=== PATIENT | male | born 1935 | race Caucasian/White ===

== ENCOUNTER 2022-02-09 17:08 | Emergency (ER) | payer MEDICARE, SELFPAY ==
[2022-02-09 17:58] VITALS: BP 179/98; PULSE 98; TEMP 36.8; O2SAT 96; BMI 26.6
--- NOTE | 2022-02-09 18:00 | XRR_ITS ---
PROCEDURE INFORMATION: Exam: XR Chest Exam date and time: 02/09/2022 6:38 PM Age: 86 years old Clinical indication: Cough and dyspnea; Additional info: Dyspnea/cough TECHNIQUE: Imaging protocol: Radiologic exam of the chest. Views: 1 view. COMPARISON: No relevant prior studies available. FINDINGS: Lungs: Right hilar to lower lobe atelectasis versus infiltrate. Emphysematous changes. Pleural spaces: Unremarkable. No pleural effusion. No pneumothorax. Heart/Mediastinum: Unremarkable. No cardiomegaly. Bones/joints: Unremarkable. XR/XR chest 1V portable [id number] IMPRESSION: 1. Right hilar to lower lobe atelectasis versus infiltrate. 2. Emphysematous changes.
--- NOTE | 2022-02-09 18:29 | W.ED.SOB ---
HPI - SOB/Dyspnea General: Chief Complaint: Shortness of Breath/Dyspnea Stated Complaint: Chest pains Covid + Time Seen by Provider: 02/09/22 17:58 Source: patient Mode of arrival: ambulatory Limitations: no limitations History of Present Illness: HPI Narrative: 86-year-old male states of last 2 days has been having cough congestion along with some slight dyspnea. He states that he took a home COVID test that was positive. He states he is continuing to cough and wheezing and just feeling fatigued. He is in no distress here his pulse ox is normal he denies any chest pain he denies any worsening improving factors denies any vomiting or diarrhea. Associated symptoms: Deny abdominal pain, chest pain, fever(s), nausea or vomiting Review of Systems Const: Denies: fever(s), chills, body aches or change in appetite Eyes: Denies: blurry vision or eye discomfort ENMT: Denies: throat pain or dental pain Card: Denies: chest pain Resp: Reports: dyspnea and non-productive cough GI: Denies: abdominal pain, nausea, vomiting or diarrhea : Denies: dysuria Musc: Denies: neck pain or back pain Skin/Breast: Denies: rash Neuro: Denies: headache(s) Psych: Denies: depression Stephen/Lymph: Denies: easy bruising All/Imm: Denies: urticaria PFSH ED PFSH: Medical History No pertinent past medical history Surgical History No pertinent past surgical history Social History Smoking and tobacco status: former smoker History of recent travel: No Physical Exam Const: COMMON NORMALS: no acute distress, patient oriented x3 and healthy appearing HENMT: COMMON NORMALS: normocephalic and atraumatic HEAD & SCALP: normocephalic and atraumatic Eye: COMMON NORMALS: Equal, round and reactive pupils present and EOMs intact bilaterally PUPIL: Yes Equal, round and reactive pupils present Neck/C-Spine: COMMON NORMALS: full ROM and supple Chest: COMMONS NORMALS: normal inspection of the chest and normal palpation of entire chest wall Resp: COMMON NORMALS: normal respiratory effort, No retractions, No use of accessory muscles and clear to auscultation bilaterally AUSCULTATION: clear to auscultation bilaterally Cardio: COMMON NORMALS: regular rate, regular rhythm and No murmurs present (Cardio) RATE: regular rate RHYTHM: regular rhythm GI: COMMON NORMALS: Normal to inspection, nondistended, normoactive bowel sounds present, Soft to palpation, non-tender and no masses PALPATION: Yes Soft to palpation Extremity: COMMON NORMALS: normal to inspection and full ROM Neuro: COMMON NORMALS: patient oriented x3, moves all extremities and no focal motor deficits Psych: COMMON NORMALS: mental status grossly normal, Normal thought process present and cooperative THOUGHT PROCESS: Normal thought process present Skin: COMMON NORMALS: no rashes or lesions noted and no wounds GENERAL SKIN EXAM: no rashes or lesions noted Course Vital Signs: Vital signs: Vital Signs Temperature 98.2 F 02/09/22 17:58 Pulse Rate 85 02/09/22 19:26 Respiratory Rate 16 02/09/22 19:25 Blood Pressure 108/82 02/09/22 19:26 Pulse Oximetry 95 02/09/22 19:26 MDM - SOB/Dyspnea Medical Decision Making Patient presents here with cough he did have a positive COVID at home and is negative here he could possibly have COVID with a false negative here. He is well-appearing here in no distress his x-ray shows a possible pneumonia we will start him on doxycycline he is to follow-up with his PCP in 3 to 5 days and return if worsening he understands and agrees to plan. Lab Data : 02/09/22 19:16 02/09/22 18:28 Labs/Radiology: Radiology Impressions Chest X-Ray 02/09/22 18:00 IMPRESSION: 1. Right hilar to lower lobe atelectasis versus infiltrate. 2. Emphysematous changes. Laboratory Results WBC 4.9 10^3/uL (4.0-10.0) 02/09/22 19:16 Corrected WBC Cancelled 02/09/22 18:28 RBC 4.25 10^6/uL (4.1-5.3) 02/09/22 19:16 Hgb 14.6 g/dL (11.7-16.6) 02/09/22 19:16 Hct 41.0 % (42.0-52.0) L 02/09/22 19:16 MCV 96.5 fl (80-94) H 02/09/22 19:16 MCH 34.4 pg (28.0-34.0) H 02/09/22 19:16 MCHC 35.6 g/dL (30.0-36.0) 02/09/22 19:16 RDW 12.7 % (12.1-15.1) 02/09/22 19:16 Plt Count 203 10^3/cmm (130-400) 02/09/22 19:16 MPV 10.4 fL (7.4-10.4) 02/09/22 19:16 Gran % Cancelled 02/09/22 18:28 Neut % (Auto) 65.2 % 02/09/22 19:16 Lymph % (Auto) 22.0 % 02/09/22 19:16 [place] % (Auto) 9.9 % 02/09/22 19:16 Eos % (Auto) 2.1 % 02/09/22 19:16 Baso % (Auto) 0.4 % 02/09/22 19:16 Neut # (Auto) 3.18 10^3/uL (1.8-7.7) 02/09/22 19:16 Lymph # (Auto) 1.1 10^3/uL (0.8-4.8) 02/09/22 19:16 [place] # (Auto) 0.5 10^3/uL (0.2-0.9) 02/09/22 19:16 Eos # (Auto) 0.1 10^3/uL (0.0-0.8) 02/09/22 19:16 Baso # (Auto) 0.0 10^3/uL (0.0-0.1) 02/09/22 19:16 Absolute Gran (auto) Cancelled 02/09/22 18:28 Nucleated RBC % (auto) 0 % 02/09/22 19:16 Nucleated RBCs # 0.0 /100WBC 02/09/22 19:16 D-Dimer 0.69 ug/mIFEU (0-0.59) H 02/09/22 18:28 Specimen Type Arterial 02/09/22 18:24 Sample Site Radial, left 02/09/22 18:24 ABG pH 7.42 (7.35-7.45) 02/09/22 18:24 ABG pCO2 38.0 mmHg (35-45) 02/09/22 18:24 ABG pO2 82.6 mmHg (80.0-100.0) 02/09/22 18:24 ABG HCO3 24.8 mmol/L (22-26) 02/09/22 18:24 ABG O2 Saturation 95.3 02/09/22 18:24 ABG Base Excess 0.5 mmol/L (-2.0-2.0) 02/09/22 18:24 [place] Test Pos 02/09/22 18:24 A-a O2 Gradient 2.5 mmHg (5-10) L 02/09/22 18:24 Hematocrit 44.4 % (42-52) 02/09/22 18: Hgb O2 Saturation 94.9 % (95-100) L 02/09/22 18:24 Carboxyhemoglobin 0.0 %THgb (0.4-20.1) L 02/09/22 18: Methemoglobin 0.5 % (0.4-1.5) 02/09/22 18:24 Total Hemoglobin 14.5 g/dL (14-18) 02/09/22 18:24 Sodium 140.0 mmol/L (131-143) 02/09/22 18:24 Potassium 4.0 mmol/L (3.5-5.0) 02/09/22 18:24 Glucose 110.0 mg/dL (70-115) 02/09/22 18: Ionized Calcium 1.2 mmol/L (1.1-1.4) 02/09/22 18:24 O2 Delivery Device Room air 02/09/22 18:24 FiO2 21.0 % 02/09/22 18:24 [employer] Operator ID Cak 02/09/22 18:24 Sodium 137 mmol/L (136-145) 02/09/22 18:28 Potassium 4.0 mmol/L (3.5-5.1) 02/09/22 18: Chloride 100 mmol/L (98-107) 02/09/22 18: Carbon Dioxide 27 mmol/L (22-29) 02/09/22 18: Anion Gap 14.0 (5-19) 02/09/22 18: BUN 15 mg/dL (8-23) 02/09/22 18:28 Creatinine 1.0 mg/dL (0.7-1.2) 02/09/22 18:28 GFR Calculation Not Reportable 02/09/22 18:28 Glucose 101 mg/dL (65-115) 02/09/22 18:28 Calculated Osmolality 285 mOsm/kg (285-295) 02/09/22 18:28 Calcium 9.1 mg/dL (8.5-10.5) 02/09/22 18:28 Total Bilirubin 0.8 mg/dL (0.15-1.2) 02/09/22 18:28 AST 26 U/L (0-40) 02/09/22 18:28 ALT 25 U/L (0-41) 02/09/22 18:28 Alkaline Phosphatase 103 IU/L (40-130) 02/09/22 18:28 Total Protein 7.0 g/dL (6.6-8.7) 02/09/22 18: Albumin 4.3 g/dL (3.5-5.2) 02/09/22 18:28 Globulin 2.7 g/dL (1.3-4.6) 02/09/22 18:28 Procalcitonin 0.10 ng/mL (0-0.5) 02/09/22 18:28 SARS-CoV-2 Ag (Rapid) Negative (Negative) 02/09/22 18:28 Discharge Plan Discharge Patient Disposition: Home Clinical Impression: Community acquired pneumonia Condition: Stable Prescriptions: New doxycycline hyclate 100 mg tablet 100 mg PO BID 7 Days Qty: 14 0RF Discharge Orders: Discharge ED (Routine); Ordered 02/09/22 Ordered By: Lisa Whitmore Discharge Diet: Advance as tolerated Discharge Activity: Resume usual activity Patient Instructions: Pneumonia (ED) Coding Level of Care Code ED Business Management Manager for Nikole Fwd Exam Comprehensive
[2022-02-09 18:35] VITALS: BP 164/98; PULSE 86; O2SAT 94
[2022-02-09 18:37] LABS: ABG PH Result 7.42 (7.35-7.45); Alveolar-Arterial Oxygen Gradi 2.5 mmHg (5-10); Arterial Blood Gas Hematocrit 44.4 % (42-52); Base Excess ABG 0.5 mmol/L (-2.0-2.0); Blood Gas Allen Test Pos; Blood Gas Operator Identificat CAK; Blood Gas Sample Site Radial, left; Blood Gas Sample Type Arterial; HCO3 ABG 24.8 mmol/L (22-26); HGB O2 Sat 94.9 % (95-100); Ionized Calcium Level - ABG 1.2 mmol/L (1.1-1.4); Methemoglobin 0.5 % (0.4-1.5); Oxygen Device ROOM AIR; Oxygen Saturation ABG 95.3; PO2 ABG 82.6 mmHg (80.0-100.0); Total Hemoglobin 14.5 g/dL (14-18)
[2022-02-09] MEDS: dexamethasone 10 mg/mL INJ IVP (18:40)
[2022-02-09 18:44] VITALS: BP 164/98; PULSE 101; O2SAT 95
[2022-02-09 18:57] LABS: D Dimer 0.69 ug/mIFEU (0-0.59)
[2022-02-09 19:01] LABS: Alanine Aminotransferase 25 U/L (0-41); Albumin Level 4.3 g/dL (3.5-5.2); Alkaline Phosphatase 103 IU/L (40-130); Aspartate Amino Transferase 26 U/L (0-40); Blood Urea Nitrogen 15 mg/dL (8-23); Calcium 9.1 mg/dL (8.5-10.5); Carbon Dioxide 27 mmol/L (22-29); Chloride 100 mmol/L (98-107); Globulin 2.7 g/dL (1.3-4.6); Glucose 101 mg/dL (65-115); Osmolality Calculated 285 mOsm/kg (285-295); Sodium 137 mmol/L (136-145); Total Bilirubin 0.8 mg/dL (0.15-1.2)
[2022-02-09 19:18] LABS: SARS Covid-2 Antigen Negative (Negative)
[2022-02-09] MEDS: albuterol 8 gm MDI 2 PUFF INHALATION (19:24)
[2022-02-09 19:25] VITALS: PULSE 79; RESP 16; O2SAT 96
[2022-02-09 19:26] VITALS: BP 108/82; PULSE 85; O2SAT 95
[2022-02-09 19:30] LABS: Basophils % 0.4 %; Eosinophils # 0.1 10^3/uL (0.0-0.8); Eosinophils % 2.1 %; Hemoglobin 14.6 g/dL (11.7-16.6); Lymphocytes # 1.1 10^3/uL (0.8-4.8); Mean Corpuscular HGB Conc 35.6 g/dL (30.0-36.0); Mean Corpuscular Hemoglobin 34.4 pg (28.0-34.0); Mean Corpuscular Volume 96.5 fl (80-94); Mean Platelet Volume 10.4 fL (7.4-10.4); Monocytes # 0.5 10^3/uL (0.2-0.9); Monocytes % 9.9 %; Neutrophils # 3.18 10^3/uL (1.8-7.7); Neutrophils % 65.2 %; Nucleated Red Blood Cells % 0 %; Platelet Count 203 10^3/cmm (130-400); Red Blood Count 4.25 10^6/uL (4.1-5.3); Red Cell Distribution Width 12.7 % (12.1-15.1); White Blood Count 4.9 10^3/uL (4.0-10.0)
[2022-02-09] MEDS: doxycycline 100 mg Tablet PO (19:47)
[2022-02-09 20:03] VITALS: BP 148/62; PULSE 85; RESP 18; O2SAT 96
== END 2022-02-09 20:04 | disposition home or self-care (01) ==
PROVIDERS: Family Medicine; Emergency Provider Emergency Medicine
DX: J18.8 Other pneumonia, unspecified organism (principal); Z87.891 Personal history of nicotine dependence; Z20.822 Contact with and (suspected) exposure to COVID-19
CPT/HCPCS: 36600; 71045; 80051; 80053; 82330; 82805; 84145; 85025; 85378; 87426; 94640; 96374; 99284; J1100; J3535